=== PATIENT | male | born 1990 | race American Indian/Alaskan Native ===

== ENCOUNTER 2020-06-29 03:09 | Emergency (ER) | payer OTHER ==
[2020-06-29] MEDS ORDERED: FAMOTIDINE 20 MG/2 ML INJ IV ONE (04:33)
[2020-06-29] MEDS ORDERED: KETOROLAC 30 MG/1 ML INJ IV ONE (04:33)
[2020-06-29] MEDS ORDERED: ONDANSETRON 4 MG/2 ML INJ IV ONE (04:34)
[2020-06-29] MEDS ORDERED: SODIUM CHLORIDE 0.9% 1000 ML 1,000 ML IV ONE (04:34)
--- NOTE | 2020-06-29 05:15 | Cat Scan Report ---
CT ABDOMEN AND PELVIS WITHOUT CONTRAST INDICATION: right flank pain CONTRAST: Without IV COMPARISON: None available. All CT scans at this location are performed using CT dose reduction for ALARA by means of automated e xposure control. FINDINGS: Lung bases are clear. No pneumoperitoneum is seen. Moderate fatty infiltration of the liver is seen. Liver is enlarged and has a length of 20.7 cm. No focal lesions are obvious. Spleen is not enlarged. No masses are seen. Gallbladder is contracted and difficult to evaluate but no obvious calc stephanie or inflammation are seen. No biliary dilatation is noted. Appendix appears within normal limits. No evidence of bowel obstruction is seen. No free fluid is noted. No lymphadenopathy is seen. No foca l inflammatory changes are noted. No urinary tract calculi or evidence of obstruction are seen. No si gnificant abdominal wall herniations are noted. IMPRESSION: No acute abnormalities are seen Signer Name: Artur Boucher MD Signed: 06/29/2020 5:10 AM Workstation Name: [id number][id number]
[2020-06-29 06:08] LABS: Hematocrit 43.7 % (35.5-45.6); Hemoglobin 14.2 gm/dl (11.8-15.2); Mean Corpuscular HGB Conc 32 % (32-34); Mean Corpuscular Volume 77 fl (84-94); Platelet Count 249 K/mm3 (140-440); Red Cell Distribution Width 15.3 % (13.2-15.2)
[2020-06-29 06:13] LABS: Basophils # (Auto) 0.1 K/mm3 (0.0-0.1); Basophils % (Auto) 1.4 % (0.0-1.8); Eosinophils # (Auto) 0.2 K/mm3 (0.0-0.4); Eosinophils % (Auto) 1.8 % (0.0-4.3); Lymphocytes % (Auto) 23.2 % (13.4-35.0); Monocytes # (Auto) 0.6 K/mm3 (0.0-0.8); Monocytes % (Auto) 11.4 % (0.0-7.3)
--- NOTE | 2020-06-29 06:23 | Emergency Department Report ---
HPI - General Chief Complaint: Abdominal Pain Time Seen by Provider: 06/29/20 06:10 - HPI HPI: This is a 29-year-old -Citizen Of [place] male who presents to the emergency department with complaint of low back pain, abdominal pain, and right arm paresthesias. The patient first had right-sided low back pain starting about 2 to 3 days ago, Wednesday. At first, the patient just thought it was from "playing with my kids", although he denies any obvious injury, trauma, or inciting event. This morning, while at work, patient began having worsening of that right lower back pain that began radiating into the right mid to upper abdomen and flank. He also began having some right upper back pain that caused "my right arm to feel like it was going numb." The numbness sensation was more like when you fall asleep on your arm, and sounds more like paresthesias then complete numbness. The abdominal pain and back pain worsen with certain movements of his torso. No known alleviating factors. He has not taken anything for symptoms prior to presentation. He denies any past medical history. He follows with [facility] practice for his PCP. He denies any fever, problems with bowel or bladder, nausea or vomiting, chest pain or shortness of breath. ED Past Medical Hx - Past Medical History Previous Medical History?: No - Surgical History Past Surgical History?: No - Social History Smoking Status: Never Smoker Substance Use Type: None - Medications Home Medications: Home Medications Medication Instructions Recorded Confirmed Last Taken Type Cyclobenzaprine [Flexeril] 10 mg PO TID PRN #12 tablet 06/29/20 Unknown Rx Ibuprofen [Motrin 800 MG tab] 800 mg PO Q8HR PRN #20 tablet 06/29/20 Unknown Rx ED Review of Systems ROS: Stated complaint: ABDOMINAL PAIN/RT ARM NUMBNESS Other details as noted in HPI Comment: All other systems reviewed and negative Constitutional: denies: chills, fever Eyes: denies: eye pain, vision change ENT: denies: ear pain, throat pain Respiratory: denies: cough, shortness of breath Cardiovascular: denies: chest pain, palpitations Gastrointestinal: abdominal pain. denies: nausea, vomiting, diarrhea, constipation Genitourinary: denies: dysuria, discharge Musculoskeletal: back pain. denies: joint swelling Skin: denies: rash, lesions Neurological: paresthesias. denies: headache Physical Exam - Physical Exam Vital Signs: Vital Signs 06/29/20 03:46 Temperature 99.5 F Pulse Rate 97 H Respiratory 18 Rate Blood Pressure 166/84 O2 Sat by Pulse 98 Oximetry Physical Exam: GENERAL: The patient is well-developed well-nourished. HENT: Normocephalic. Atraumatic. Patient has moist mucous membranes. EYES: Extraocular motions are intact. NECK: Supple. Trachea is midline. CHEST/LUNGS: Clear to auscultation. There is no respiratory distress noted. HEART/CARDIOVASCULAR: Regular. There is no tachycardia. There is no murmur. ABDOMEN: Abdomen is soft. Unable to reproduce the right-sided abdominal and flank pain to palpation. No guarding. Patient has normal bowel sounds. There is no abdominal distention. SKIN: Skin is warm and dry. NEURO: The patient is awake, alert, and oriented. The patient is cooperative. The patient has no focal neurologic deficits. Normal speech. MUSCULOSKELETAL: There is no tenderness or deformity. There is no limitation range of motion. Radial pulse +2/4 and capillary refill less than 2 seconds to the affected right upper extremity. BACK: No midline thoracic or lumbar tenderness to palpation. There is reproducible right-sided lower thoracic and lumbar paraspinal tenderness to palpation with associated taut musculature. ED Course Vital Signs 06/29/20 03:46 Temperature 99.5 F Pulse Rate 97 H Respiratory 18 Rate Blood Pressure 166/84 O2 Sat by Pulse 98 Oximetry ED Medical Decision Making - Lab Data Result diagrams: 06/29/20 04:50 06/29/20 04:50 Lab Results 06/29/20 06/29/20 06/29/20 Range/Units 04:50 04:50 Unknown WBC 8.7 (4.5-11.0) K/mm3 RBC 5.70 H (3.65-5.03) M/mm3 Hgb 14.2 (11.8-15.2) gm/dl Hct 43.7 (35.5-45.6) % MCV 77 L (84-94) fl MCH 25 L (28-32) pg MCHC 32 (32-34) % RDW 15.3 H (13.2-15.2) % Plt Count 249 (140-440) K/mm3 Lymph % (Auto) 23.2 (13.4-35.0) % [place] % (Auto) 11.4 H (0.0-7.3) % Eos % (Auto) 1.8 (0.0-4.3) % Baso % (Auto) 1.4 (0.0-1.8) % Lymph # (Auto) 2.0 (1.2-5.4) K/mm3 [place] # (Auto) 0.6 (0.0-0.8) K/mm3 Eos # (Auto) 0.2 (0.0-0.4) K/mm3 Baso # (Auto) 0.1 (0.0-0.1) K/mm3 Seg Neutrophils % 62.2 (40.0-70.0) % Seg Neutrophils # 5.4 (1.8-7.7) K/mm3 Sodium 142 (137-145) mmol/L Potassium 4.1 (3.6-5.0) mmol/L Chloride 101.3 (98-107) mmol/L Carbon Dioxide 26 (22-30) mmol/L Anion Gap 19 mmol/L BUN 13 (9-20) mg/dL Creatinine 1.0 (0.8-1.3) mg/dL Estimated GFR > 60 ml/min BUN/Creatinine Ratio 13 % Glucose 106 H (75-100) mg/dL Calcium 10.0 (8.4-10.2) mg/dL Total Bilirubin 0.20 (0.1-1.2) mg/dL AST 29 (5-40) units/L ALT 65 H (7-56) units/L Alkaline Phosphatase 80 (35-129) units/L Total Protein 7.5 (6.3-8.2) g/dL Albumin 4.7 (3.9-5) g/dL Albumin/Globulin Ratio 1.7 % Lipase 21 (13-60) units/L Urine Color Yellow (Yellow) Urine Turbidity Clear (Clear) Urine pH 6.0 (5.0-7.0) Ur Specific [place] 1.014 (1.003-1.030) Urine Protein <15 mg/dl (Negative) mg/dL Urine Glucose (UA) Neg (Negative) mg/dL Urine Ketones Neg (Negative) mg/dL Urine Blood Neg (Negative) Urine Nitrite Neg (Negative) Urine Bilirubin Neg (Negative) Urine Urobilinogen < 2.0 (<2.0) mg/dL Ur Leukocyte Esterase Neg (Negative) Urine WBC (Auto) < 1.0 (0.0-6.0) /HPF Urine RBC (Auto) 1.0 (0.0-6.0) /HPF U Epithel Cells (Auto) < 1.0 (0-13.0) /HPF Urine Mucus Few /HPF - Radiology Data Radiology results: report reviewed CT ABDOMEN AND PELVIS WITHOUT CONTRAST INDICATION: right flank pain CONTRAST: Without IV COMPARISON: None available. All CT scans at this location are performed using CT dose reduction for ALARA by means of automated exposure control. FINDINGS: Lung bases are clear. No pneumoperitoneum is seen. Moderate fatty infiltration of the liver is seen. Liver is enlarged and has a length of 20.7 cm. No focal lesions are obvious. Spleen is not enlarged. No masses are seen. Gallbladder is contracted and difficult to evaluate but no obvious calculi or inflammation are seen. No biliary dilatation is noted. Appendix appears within normal limits. No evidence of bowel obstruction is seen. No free fluid is noted. No lymphadenopathy is seen. No focal inflammatory changes are noted. No urinary tract calculi or evidence of obstruction are seen. No significant abdominal wall herniations are noted. IMPRESSION: No acute abnormalities are seen - Medical Decision Making The patient presents to the emergency department with 2 main issues, right lower back pain that radiates to the right flank and right abdomen, and right upper extremity paresthesias. On examination there is some reproducible right-sided abdominal tenderness to palpation, but the abdomen is soft, nondistended, and nontoxic in appearance. The patient has full range of motion of all of his extremities and appears neurovascularly intact. The paresthesias have also resolved. The patient's labs are unremarkable including CBC, metabolic panel, lipase, urinalysis, other than a slightly elevated ALT level. CT scan of the abdomen/pelvis does not show any acute process. Patient was given some Pepcid, Toradol, Zofran and IV fluid through triage with some improvement. His vital signs have been reassuring throughout his ED course. Patient will be discharged home to follow-up with primary care and has been given an outpatient referral for gastroenterology. He will be placed on a muscle relaxer and anti-inflammatories for the back pain and paresthesias. He will return to the emergency department with any worsening of his symptoms or with any acute distress. Critical care attestation.: If time is entered above; I have spent that time in minutes in the direct care of this critically ill patient, excluding procedure time. ED Disposition Clinical Impression: Paresthesia, Back pain, Flank pain, Abdominal pain Disposition: - TO HOME OR SELFCARE Is pt being admited?: No Condition: Stable Instructions: Paresthesia, Abdominal Pain, Adult, Acute Back Pain, Adult, Flank Pain, Adult Additional Instructions: Please follow-up with your primary care physician in the next few days. I am giving you a referral for [facility], to follow-up regarding your abdominal pains. You have been prescribed a medication that is sedating and therefore should not be taken prior to driving, working, and responsible for children and in no way should be mixed with alcohol of any quantity. Return to the emergency department with any worsening of your symptoms, new or concerning symptoms not addressed during this current emergency department visit, or with any acute distress. Prescriptions: Cyclobenzaprine [Flexeril] 10 mg PO TID PRN #12 tablet PRN Reason: Muscle Spasm Ibuprofen [Motrin 800 MG tab] 800 mg PO Q8HR PRN #20 tablet PRN Reason: Pain , Severe (7-10) Referrals: [facility] [Provider Group] - 2-3 Days PCP, Your [Other] - 2-3 Days Time of Disposition: 09:42
[2020-06-29 06:33] LABS: Alanine Aminotransferase 65 units/L (7-56); Albumin 4.7 g/dL (3.9-5); BUN/Creatinine Ratio 13; Blood Urea Nitrogen 13 mg/dL (9-20); Hemolysis Index 5
[2020-06-29 09:48] LABS: Bilirubin,Urine NEG (Negative); Blood,Urine NEG (Negative); Color,Urine Yellow (Yellow); Mucus,Urine FEW /HPF; Protein,Urine <15 mg/dL mg/dL (Negative); Urobilinogen,Urine < 2.0 mg/dL (<2.0); WBC,Urine < 1.0 /HPF (0.0-6.0)
[2020-06-29 10:13] VITALS: BP 149/84
== END 2020-06-29 10:12 | disposition home or self-care (01) ==
LOC: ED 03:09
DX: M54.5 Low back pain (principal); R10.9 Unspecified abdominal pain; R20.0 Anesthesia of skin; Z79.1 Long term (current) use of non-steroidal anti-inflammatories (NSAID); Z79.899 Other long term (current) drug therapy
CPT/HCPCS: 36415; 74176; 80053; 81001; 83690; 85025; 96361; 96374; 96375; 99284; J1885; J2405; J7030